=== PATIENT | male | born 1980 | race Caucasian/White ===

== ENCOUNTER 2016-07-02 02:22 | Emergency (ER) | payer MEDICAID, OTHER ==
[~2016-07-02] VITALS: Ht 167.6 cm; Wt 68.2 kg
[2016-07-02 02:27] VITALS: Ht 167.6 cm; Wt 68.2 kg
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
[2016-07-02] MEDS ORDERED: MELO-109 PO (03:00)
[2016-07-02] MEDS ORDERED: NAPR220C2 PO (03:02)
[2016-07-02 03:24] LABS: ADD SCAN DIFF NO
[2016-07-02 03:40] LABS: BASOPHILS % 0.2 % (0.0-2.0); EOSINOPHILS # 0.1 10^3/ul (0.0-0.5); HEMATOCRIT 44.6 % (42.0-52.0); HEMOGLOBIN 15.3 g/dl (14.0-18.0); LYMPHOCYTES # 1.8 10^3/ul (0.8-2.9); LYMPHOCYTES % 29.1 % (15.0-51.0); MEAN CORPUSCULAR HEMOGLOBIN 31.1 pg (29.0-33.0); MEAN CORPUSCULAR HGB CONC 34.3 g/dl (32.0-37.0); MEAN CORPUSCULAR VOLUME 90.7 fl (82.0-101.0); MONOCYTE # 0.7 10^3/ul (0.3-0.9); MONOCYTES % 11.7 % (0.0-11.0); NEUTROPHIL # 3.6 10^3/ul (1.6-7.5); NEUTROPHILS % 57.7 % (39.0-77.0); RED BLOOD COUNT 4.92 10^6/ul (4.70-6.10); RED CELL DISTRIBUTION WIDTH 12.3 % (11.5-14.5); WHITE BLOOD COUNT 6.2 10^3/ul (4.8-10.8)
[2016-07-02 04:06] LABS: ALBUMIN 4.2 g/dl (3.3-4.9); CHLORIDE 103 mmol/L (97-110)
[2016-07-02 04:07] LABS: POTASSIUM 3.2 mmol/L (3.5-5.1); SODIUM 143 mmol/L (135-144)
[2016-07-02 04:09] LABS: ANION GAP 19 (8-16); ASPARTATE AMINO TRANSFERASE 30 IU/L (15-46); BILIRUBIN,INDIRECT 0.1 mg/dl (0-1.1); BILIRUBIN,TOTAL 0.1 mg/dl (0.2-1.3); CARBON DIOXIDE 24 mmol/L (21-31); CREATININE 0.85 mg/dl (0.61-1.24); TOTAL PROTEIN 7.2 g/dl (6.1-8.1)
[2016-07-02 04:10] LABS: ALANINE AMINOTRANSFERASE 37 IU/L (13-69); ALKALINE PHOSPHATASE 77 IU/L (42-121); BLOOD UREA NITROGEN 15 mg/dl (7-20); CALCIUM 8.9 mg/dl (8.4-10.2); GLUCOSE 88 mg/dl (70-220)
[2016-07-02 04:11] LABS: ACETAMINOPHEN < 10.0 ug/ml (10.0-30.0); SALICYLATE < 1.0 mg/dl (5.0-30.0)
[2016-07-02 04:21] LABS: ADD UMIC YES; URINE BILIRUBIN (Dip) NEGATIVE (NEGATIVE); URINE BLOOD (Dip) NEGATIVE (NEGATIVE); URINE COLOR LT. YELLOW (YELLOW); URINE GLUCOSE (Dip) NEGATIVE (NEGATIVE); URINE KETONES (Dip) NEGATIVE (NEGATIVE); URINE LEUKOCYTE ESTERASE (Dip) TRACE (NEGATIVE); URINE NITRITE (Dip) NEGATIVE (NEGATIVE); URINE TOTAL PROTEIN (Dip) NEGATIVE (NEGATIVE); URINE UROBILINOGEN (Dip) 0.2 E.U./dL (0.1-1.0)
[2016-07-02 04:34] LABS: PLATELET ESTIMATE PLT APPEAR ADEQUATE; PLATELETS CLUMPS MODERATE
[2016-07-02 04:35] LABS: MEAN PLATELET VOLUME 9.1 fl (7.4-10.4)
[2016-07-02 04:40] LABS: ABNORMAL IP MESSAGE 1
[2016-07-02 04:41] LABS: PLATELET COUNT 149 10^3/UL (140-415)
[2016-07-02 04:47] LABS: URINE RBCS 0-2 /HPF (0)
[2016-07-02 04:49] LABS: BARBITURATES Negative (NEGATIVE); BENZODIAZEPINES Negative (NEGATIVE); CANNABINOIDS Positive (NEGATIVE); COCAINE Negative (NEGATIVE); OPIATES Negative (NEGATIVE)
[2016-07-02 06:15] VITALS: BP 130/88; PULSE 95; RESP 18; TEMP 98.9
--- NOTE | 2016-07-02 07:06 | PSY ---
Date/Time of Note Date/Time of Note DATE: 07/02/16 TIME: 06:11 Psychiatric Subjective Eval Consent Pt consented to telemedicine: Yes Subjective Evaluation Patient location: emergency Chief Complaint: S/I Reason for consult: self cut History of present illness patient is a 35 yo male with PPH Of depression who came to the ER brought in by ambulance after he cut himself with knife because he wanted "to make a point " to his girlfriend who did not stop arguing to him and not paying attention to him, he states that they have been together for about 3 months and have been arguing a lot due to having 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 He denies trying to kill himself , denies any past or current si , no HI, he denies any past or current manic or psychotic symptoms, denies feeling depressed or anxious but wants to go home and rest. Past psychiatric history no past admission Hospitalization: yes Family History denies Medical history Problems Medical Problems: (1) Laceration Status: Acute (2) Suicidal ideation Status: Acute Allergies: Coded Allergies: morphine (Unverified Allergy, Mild, hives, 07/02/16) Substance Abuse Substance use: No known substance abuse Social History Marital status: single Level of education: hs DPA/Conservatorship: No Occupation/Detention: unemployed Psychiatric Objective Eval Review of Systems: Review of Systems: Not Applicable Physical Examination: Physical Examination: Applicable Sleep: Insomnia Energy: Adequate Interest: Adequate Mental Status Examination: Appearance: Groomed Eye Contact: Good Psychomotor Activity: Normal Behavior: Cooperative Speech: Clear AFFECT: Appropriate Mood: Appropriate/Full Though Process: Linear Thought Content: Normal Suicidal: No Homicidal: No On 72 hour hold: No Orientation: x3 Cognition: Alert Insight: Intact Judgement: Intact Attention Span: Intact Laboratory Results Laboratory Tests Test 07/02/16 02:40 07/02/16 03:10 White Blood Count 6.210^3/ul Red Blood Count 4.9210^6/ul Hemoglobin 15.3g/dl Hematocrit 44.6% Mean Corpuscular Volume 90.7fl Mean Corpuscular Hemoglobin 31.1pg Mean Corpuscular Hemoglobin Concent 34.3g/dl Red Cell Distribution Width 12.3% Platelet Count 30037^3/UL Mean Platelet Volume 9.1fl Neutrophils % 57.7% Lymphocytes % 29.1% Monocytes % 11.7% Eosinophils % 1.0% Basophils % 0.2% Nucleated Red Blood Cells % 0.0/100WBC Neutrophils # 3.610^3/ul Lymphocytes # 1.810^3/ul Monocytes # 0.710^3/ul Eosinophils # 0.110^3/ul Basophils # 0.010^3/ul Nucleated Red Blood Cells # 0.010^3/ul Platelet Estimate PLT APPEAR ADEQUATE Clumped Platelets MODERATE Large Platelets FEW Sodium Level 143mmol/L Potassium Level 3.2mmol/L Chloride Level 103mmol/L Carbon Dioxide Level 24mmol/L Anion Gap 19 Blood Urea Nitrogen 15mg/dl Creatinine 0.85mg/dl Glucose Level 88mg/dl Calcium Level 8.9mg/dl Total Bilirubin 0.1mg/dl Direct Bilirubin 0.00mg/dl Indirect Bilirubin 0.1mg/dl Aspartate Amino Transf (AST/SGOT) 30IU/L Alanine Aminotransferase (ALT/SGPT) 37IU/L Alkaline Phosphatase 77IU/L Total Protein 7.2g/dl Albumin 4.2g/dl Globulin 3.00g/dl Albumin/Globulin Ratio 1.40 Salicylates Level < 1.0mg/dl Acetaminophen Level < 10.0ug/ml Ethyl Alcohol Level 77.0mg/dl Urine Color LT. YELLOW Urine Clarity CLEAR Urine pH 6.0 Urine Specific [place] 1.010 Urine Ketones NEGATIVE Urine Nitrite NEGATIVE Urine Bilirubin NEGATIVE Urine Urobilinogen 0.2 E.U./dL Urine Leukocyte Esterase TRACE Urine Microscopic RBC 0-2/HPF Urine Microscopic WBC 0-2/HPF Urine Hemoglobin NEGATIVE Urine Glucose NEGATIVE% Urine Total Protein NEGATIVE Urine Opiates Screen Negative Urine Barbiturates Negative Urine Amphetamines Screen Negative Urine Benzodiazepines Screen Negative Urine Cocaine Screen Negative Urine Cannabinoids Positive Assessment and Plan Assessment/Diagnosis Susan I: mood do nos Susan II: deferred Susan III: as per as per record Susan IV: poor social support Susan V: gaf 75 Recommendation/Plan Follow-up/Disposition In my opinion,for this patient, outpatient care is the least restrictive option. Based on available evidence, this condition CAN be safely treated at a lower level of care effective today. Patient is stable without clear and convincing evidence of imminent danger due to mental illness that requires acute inpatient psychiatric care as the least restrictive alternative. Please discharge patient with referral for follow up to a outpatient mental health clinic for psychotherapy. CRISTHIAN ONEAL MD July 02, 2016 07:06
== END 2016-07-02 06:15 | disposition home or self-care (01) ==
LOC: E/R 02:22
DX: S51.812A Laceration without foreign body of left forearm, initial encounter (principal); R45.851 Suicidal ideations; X78.9XXA Intentional self-harm by unspecified sharp object, initial encounter; Y92.9 Unspecified place or not applicable
CPT/HCPCS: 12002; 36415; 80053; 80306; 80307; 81001; 85025; Z7502

== ENCOUNTER 2016-09-08 15:29 | Emergency (ER) | payer SELFPAY ==
[~2016-09-08] VITALS: Ht 175.3 cm; Wt 63.5 kg
[~2016-09-08 15:29] MED LIST: MELO-109 PO; NAPR220C2 PO
[2016-09-08 15:33] VITALS: Ht 175.3 cm; Wt 63.5 kg
[2016-09-08] MEDS ORDERED: AMOX1TAB9 PO (16:58)
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
== END 2016-09-08 17:11 | disposition home or self-care (01) ==
LOC: FTE 15:29
DX: H72.91 Unspecified perforation of tympanic membrane, right ear (principal); S00.511A Abrasion of lip, initial encounter; F17.210 Nicotine dependence, cigarettes, uncomplicated; W22.8XXA Striking against or struck by other objects, initial encounter; Y92.9 Unspecified place or not applicable
CPT/HCPCS: 99283